=== PATIENT | female | born 1955 | race Caucasian/White ===

== ENCOUNTER → 2020-07-21 | Outpatient (CLI) | payer MEDICARE, OTHER ==
[~2020-07-21] MED LIST: CLARITIN10 MG PO; ECOTRIN81 MG PO; ELIQUIS2.5 MG PO; MOBIC15 MG PO; NORCO 7.5-3251 EACH PO; OSTEO BI-FLEX1 EAC1 PO; PRAVACHOL20 MG PO; PREMARIN VAG CR30 GM EXT; SYNTHROID75 MCG PO; THERAGRAN M TAB1 EA PO; TOPROL XL25 MG PO; VITAMIN D32000 UNI1 PO; VITAMIN E400 UNI2 PO
== END ==
LOC: EXRD 13:40
DX: R60.9 Edema, unspecified (principal)
CPT/HCPCS: 93971